=== PATIENT | male | born 1995 | race Two or more races ===

== ENCOUNTER 2018-06-25 23:29 | Emergency (ER) | payer OTHER ==
[2018-06-26] MEDS ORDERED: METHYLPREDNISOLONE INJ 125 MG/2 ML SDV IV ONE (04:02)
[2018-06-26] MEDS ORDERED: IPRATROPIUM/ALBUTEROL 0.5-2.5 MG/3 ML AMPUL NEB ONE ×2 (04:03→05:57)
[2018-06-26 05:02] LABS: ABSOLUTE BASOPHILS # (AUTO) 0.1 10^3/uL (0.0-0.2); ABSOLUTE EOSINOPHILS # (AUTO) 0.7 10^3/uL (0.0-0.6); ABSOLUTE MONOCYTES (AUTO) 1.1 10^3/uL (0.1-1.4); ABSOLUTE NEUT (AUTO) 9.7 10^3/uL (1.7-8.2); BASOPHILS % (AUTO) 0.3 % (0-2); EOSINOPHILS % (AUTO) 4.1 % (0-6); HEMATOCRIT 42.6 % (37.9-51.0); HEMOGLOBIN 14.4 g/dL (13.5-17.0); LYMPHOCYTES % (AUTO) 30.4 % (13-45); MEAN CORPUSCULAR HEMOGLOBIN 27.3 pg (27.0-33.4); MEAN CORPUSCULAR HGB CONC 33.8 g/dL (32.0-36.0); MEAN CORPUSCULAR VOLUME 81 fl (80-97); MONOCYTES % (AUTO) 6.6 % (3-13); PLATELET COUNT 287 10^3/uL (150-450); RED BLOOD COUNT 5.28 10^6/uL (4.35-5.55); RED CELL DISTRIBUTION WIDTH 13.8 % (11.5-14.0); SEGMENTED NEUTROPHILS % (AUTO) 58.6 % (42-78); TOTAL CELLS COUNTED % (AUTO) 100 %; WHITE BLOOD COUNT 16.5 10^3/uL (4.0-10.5)
--- NOTE | 2018-06-26 05:07 | RADIOLOGY REPORT (SQ) ---
EXAM DESCRIPTION: XR CHEST 2 VIEWS COMPLETED DATE/TME: 06/26/2018 04:02 CLINICAL HISTORY: wheezing COMPARISON: None. FINDINGS: Frontal and lateral views of the chest. Leads overlie the chest. The cardiomediastinal silhouette has normal size and contour. No consolidation, pneumothorax, or pleural effusion. No acute osseous abnormality. Upper abdominal soft tissues are unremarkable. IMPRESSION: 1. No acute pulmonary process identified.
[2018-06-26 05:14] LABS: ALANINE AMINOTRANSFERASE 31 U/L (21-72); ALBUMIN 4.4 g/dL (3.5-5.0); ALKALINE PHOSPHATASE 44 U/L (38-126); ANION GAP 13 (5-19); ASPARTATE AMINO TRANSFERASE 28 U/L (17-59); BILIRUBIN,DIRECT 0.4 mg/dL (0.0-0.4); BILIRUBIN,TOTAL 0.9 mg/dL (0.2-1.3); BLOOD UREA NITROGEN 15 mg/dL (7-20); CALCIUM 9.9 mg/dL (8.4-10.2); CARBON DIOXIDE 28 mmol/L (22-30); CHLORIDE 103 mmol/L (98-107); GLUCOSE 81 mg/dL (75-110); POTASSIUM 3.7 mmol/L (3.6-5.0); SODIUM 143.6 mmol/L (137-145); TOTAL PROTEIN 7.8 g/dL (6.3-8.2)
[2018-06-26] MEDS: MAGNESIUM SULFATE/D5W 1 GM/100 ML RTUPB IV SCH ×2 (06:04→06:25)
--- NOTE | 2018-06-26 07:36 | ER Document Report ---
ED Respiratory Problem - General Chief Complaint: Shortness Of Breath Stated Complaint: SHORTNESS OF BREATH,TIGHTNESS IN CHEST Time Seen by Provider: 06/26/18 03:54 Mode of Arrival: Ambulatory Information source: Patient Notes: Patient is a 21-year-old male comes to emergency room complaining of a slight increased shortness of breath and tightness in his chest. Patient states that he is in the [place] and went out for the 3 mile run yesterday it was a "physical run". He states that he got a little short of breath and started wheezing. He was able to finish the run without too much with difficulty but noticed that his breathing got a little tighter. He was noticing that he had audible wheezing every time that he took a breath in and out. As waking up emergency room. Patient denies any other medical problems he does not smoke or do drugs or drink. Mother has a history of asthma only. Patient denies any fevers denies any productive cough denies any really nausea vomiting diarrhea he also denies any recent trauma to his legs etc. Patient's vital signs on arrival was a pulse of 89 blood pressure 126/56 respiratory rate is 16 and O2 sat of 97% on room air TRAVEL OUTSIDE OF THE [place] IN LAST 30 DAYS: No - HPI Patient complains to provider of: Asthma, Cough Onset: Yesterday Duration: Better, Intermittent episodes Initiating Event: Exertion Quality of pain: No pain Severity: Moderate Pain Level: 3 Context: denies: Hx asthma, Recent foreign travel, Recent long distance trvl, Recent surgery, Smoker Short of Breath: Moderate Chest pain/discomfort: denies: Radiates to arm, Radiates to back Cough: Nonproductive Sputum amount: None Associated symptoms: Congestion, Cough, Difficulty breathing, Short of breath, Wheezing Similar symptoms previously: No Recently seen / treated by doctor: No - Related Data Allergies/Adverse Reactions: No Known Allergies Allergy (Unverified 06/25/18 23:33) Past Medical History - General Information source: Patient - Social History Smoking Status: Never Smoker Cigarette use (# per day): No Chew tobacco use (# tins/day): No Smoking Education Provided: No - 1 deserves Frequency of alcohol use: Rare Drug Abuse: None Lives with: Other - Family History: Reviewed & Not Pertinent, Other - Mother asthma Patient has suicidal ideation: No Patient has homicidal ideation: No Renal/ Medical History: Denies: Hx Peritoneal Dialysis Review of Systems - Review of Systems Constitutional: No symptoms reported EENT: No symptoms reported Cardiovascular: No symptoms reported Respiratory: See HPI, Cough, Short of breath, Wheezing Gastrointestinal: No symptoms reported Genitourinary: No symptoms reported Male Genitourinary: No symptoms reported Musculoskeletal: No symptoms reported Skin: No symptoms reported Hematologic/Lymphatic: No symptoms reported Neurological/Psychological: No symptoms reported -: Yes All other systems reviewed and negative Physical Exam - Vital signs Vitals: Temp Pulse Resp BP Pulse Ox 98.0 F 89 16 126/56 H 96 06/26/18 00:31 06/26/18 00:31 06/26/18 00:31 06/26/18 00:31 06/26/18 00:31 Interpretation: Normal - Notes Notes: PHYSICAL EXAMINATION: GENERAL: Well-appearing, well-nourished and in no acute distress. HEAD: Atraumatic, normocephalic. EYES: Pupils equal round and reactive to light, extraocular movements intact, sclera anicteric, conjunctiva are normal. ENT: Nares patent, oropharynx clear without exudates. Moist mucous membranes. NECK: Normal range of motion, supple without lymphadenopathy LUNGS: Auscultation patient's lung shows he has bilateral breath sounds breath sounds are increased throughout with audible inspiratory expiratory wheeze noted in the bilateral lung mercedes. Patient has no rhonchi or rales are noted on inspiration or expiration. And there is no productive cough. HEART: Regular rate and rhythm without murmurs Musculoskeletal: Normal range of motion, no pitting or edema. No cyanosis. NEUROLOGICAL: Cranial nerves grossly intact. Normal speech, normal gait. Normal sensory, motor exams PSYCH: Normal mood, normal affect. SKIN: Warm, Dry, normal turgor, no rashes or lesions noted. Course - Re-evaluation Re-evalutation: 06/26/18 07:36 Patient progressed very well on the neb treatments and steroids along with the magnesium. He feels much much much better. We will send him home on an albuterol nebulizer with a spacer along with a steroid taper and an antihistam ine. He should be a resume normal duties tomorrow. He is to follow-up with the [facility] for further instructions. - Vital Signs Vital signs: Temp Pulse Resp BP Pulse Ox 98.2 F 89 16 134/75 H 95 06/26/18 02:24 06/26/18 00:31 06/26/18 06:00 06/26/18 04:01 06/26/18 06:00 - Laboratory Result Diagrams: 06/26/18 02:32 06/26/18 02:32 Laboratory results interpreted by me: 06/26/18 02:32 WBC 16.5 H Absolute Neutrophils 9.7 H Absolute Lymphocytes 5.0 H Absolute Eosinophils 0.7 H Discharge - Discharge Clinical Impression: Reactive airway disease with wheezing Qualifiers: Asthma severity: unspecified severity Asthma persistence: unspecified Asthma complication type: uncomplicated Qualified Code(s): J45.909 - Unspecified asthma, uncomplicated Asthma attack Qualifiers: Asthma severity: mild Asthma persistence: unspecified Qualified Code(s): J45.901 - Unspecified asthma with (acute) exacerbation Disposition: HOME, SELF-CARE Instructions: Reactive Airway Disease (OM), Asthma (OM) Additional Instructions: Today he should go home and rest. No physical activity for 24 hours continue to use the albuterol MDI every 6 hours for the first 24 hours and then every 6 hours as needed from then on. Take all of the steroid pills. Take a daily antihistamine decongestant like Zyrtec which is [id number]. Return to ER if you have any concerns or problems. You need to follow-up with your [place] info [place] Prescriptions: Albuterol Sulfate [Proair HFA Inhalation Aerosol 8.5 gm MDI] 200 puff IH Q4 PRN #1 [id number] PRN Reason: Prednisone 10 mg PO ASDIR 6 Days #1 tab.ds.pk Forms: Return to Work, Parent Work Note
[2018-06-26 07:50] VITALS: BP 115/91
== END 2018-06-26 07:55 | disposition home or self-care (01) ==
LOC: ER 23:29
DX: J45.901 Unspecified asthma with (acute) exacerbation (principal); R06.02 Shortness of breath; R07.89 Other chest pain; R05 Cough; Z82.5 Family history of asthma and other chronic lower respiratory diseases
CPT/HCPCS: 94640; 99285; 96375; 96365; 96366; 36415; 85025; 80053; 71046; J2930; J3475; J7620